=== PATIENT | male | born 1950 | race Caucasian/White ===

== ENCOUNTER 2025-07-24 05:39 | Emergency (ER) | payer BC, SELFPAY ==
[2025-07-24 05:45] VITALS: BP 148/82
[2025-07-24 08:05] VITALS: BP 146/88
[2025-07-24 08:36] VITALS: BP 146/88; BMI 28.4
[2025-07-24 08:39] LABS: Hematocrit 43.7 % (39.0-52.0); Hemoglobin 15.2 g/dL (13.0-18.0); Mean Corp Hgb Conc. 34.8 g/dL (33.0-37.0); Mean Corpuscular Volume 98.9 fL (80.0-94.0); Nucleated Red Blood Cells % 0 % (-); Platelet Count 173 10^3/uL (130-400); Red Cell Dist. Width 12.6 % (11.5-14.5)
[2025-07-24 08:53] LABS: ALT (SGPT) 21 U/L (0-50); AST (SGOT) 26 U/L (17-59); Albumin 4.3 g/dl (3.5-5.0); Alkaline Phosphatase 53 U/L (38-126); Blood Urea Nitrogen 16 mg/dl (9-20); Calcium 9.3 mg/dl (8.4-10.2); Carbon Dioxide 26 mmol/L (22-30); Chloride 107 mmol/L (98-107); Estimated Creatinine Clearance 106 ml/min; Glucose 98 mg/dl (70-99); Magnesium 2.1 mg/dl (1.6-2.3); Potassium 4.1 mmol/L (3.5-5.1); Sodium 138 mmol/L (135-145); Total Protein 7.1 g/dl (6.3-8.2); eGFR > 60.00
[2025-07-24 09:00] VITALS: BP 128/75
--- NOTE | 2025-07-24 09:13 | ED.GENMED ---
History of Present Illness
General
Chief Complaint: Headache
Source: patient
Time Seen by Provider: 07/24/25 09:08
History of Present Illness
History of Present Illness:
74-year-old male with past medical history of subarachnoid hemorrhage, hypertension, [id number] diabetes presenting to the emergency department for evaluation of 3 to 4 days of a left posterior neck/headache that is not any worse today
but not getting any better described to be a mild to moderate aching sensation, nonradiating, mildly reproducible with range of motion. Patient states that this feels different than his previous subarachnoid hemorrhage as the intensity is not as
severe as well as he does not have any nausea or vomiting with it. Patient is without any fevers, chills, rigors, rashes, visual disturbances, focal weakness or numbness, chest pain or shortness of breath. He did not have any relief when he
attempted to use Tylenol or Motrin. No other concerns at this time.
Past History
Past History
ED Past Medical History: HTN, Hypercholesterolemia, NIDDM and Other (Subarachnoid hemorrhage)
ED Past Surgical History: Orthopedic (hip replacment at [place]) and Other
Social History
Tobacco: Non-smoker
Alcohol: Occasional
Drug: None
Personal:
Living: with family
Employment: Employed
Family History
Family History: Other
Review of Systems
Review of Systems
All Other Systems: ROS reviewed and negative except as documented in HPI and ROS
Phy Exam
Physical Exam
Physical Exam:
GENERAL: Alert , in no apparent distress
HEAD: Normocephalic atraumatic
EYE: conjunctiva clear, pupils 3mm bilateral
NECK: Supple, no significant adenopathy. FROM. mild discomfort with rightward rotation
ENT: o/p clr, mmm.
CARDIAC: Regular rate and rhythm
LUNGS: Clear breath sounds bilaterally, no acute respiratory distress, no wheezes/rales/rhonchi
NEUROLOGICAL: Alert and oriented
SKIN: Warm and dry, skin intact.
MUSCULOSKELETAL: well perfused.
PSYCH: Normal and appropriate interaction.
Scores
Heart Failure Risk
Heart Failure Risk Score: Not Applicable
Heart Score for Chest Pain Patients
STEMI patient?: Not applicable
Withdrawal Assessment of Alcohol
Withdrawal Assessment Completed?: Not applicable
Course
Orders/Labs/Results
Orders:
Orders
07/24/25 07:36
CT Head W/o Iv Contrast Urgent
Comment:
Reason For Exam: headache X 4 days
07/24/25 08:26
Complete Blood Count/With Diff Urgent
Comprehensive Metabolic Panel Urgent
Magnesium Urgent
07/24/25 09:12
CT Head & Neck Angio W/wo IV Urgent
Comment:
Reason For Exam: hx subarachnoid hemorrhage, post left headache
Abnormal Lab Results
07/24/25
08:26
RBC 4.42 L 10^6/uL
(4.70-6.10)
MCV 98.9 H fL
(80.0-94.0)
MCH 34.4 H pg
(27.0-31.0)
Abs Immat Gran (auto) 0.1 H 10^3/uL
(0-0.05)
Absolute Monos (auto) 0.7 H 10^3/uL
(0.1-0.6)
Immature Gran % 0.8 H %
(0-0.5)
Monocytes % 10.6 H %
(1.7-9.3)
Creatinine 0.6 L mg/dL
(0.7-1.3)
Total Bilirubin 1.4 H mg/dl
(0.2-1.3)
07/24/25 08:26
07/24/25 08:26
Vital Signs
Initial and Last Documented VS:
Initial Vital Signs
Temp Pulse Resp BP Pulse Ox
98.0 F 74 20 148/82 96
07/24/25 05:45 07/24/25 05:45 07/24/25 05:45 07/24/25 05:45 07/24/25 05:45
Last Documented Vital Signs
Temp Pulse Resp BP Pulse Ox
97.6 F 65 19 122/71 95
07/24/25 08:36 07/24/25 10:15 07/24/25 10:15 07/24/25 10:00 07/24/25 10:15
MDM/Problems Addressed
Differential Diagnosis Includes:
SAH
Vertebral artery dissection
Muscular strain
Less concern for infection
MDM/Problems Addressed:
74-year-old male presenting to the ER for evaluation of 3 to 4 days of left posterior head/neck pain, unchanged today but not getting any better and no relief with Motrin or Tylenol. Patient has a history of a subarachnoid hemorrhage from
approximately 10 years ago. Not on any anticoagulant medications. Arrives to the ER hemodynamically stable. Labs and a head CT had been ordered with no acute pathologies found. Given patient's history of the subarachnoid hemorrhage I am adding
on CTA of the head and neck to further evaluate. Patient declining anything for symptoms.
Chronic conditions affecting care: Neurological disorder
*Radiology
Radiology exam reviewed: radiology read reviewed
*Pulse Oximetry
SaO2: 98
Oxygen Mode of Delivery: Room air
Patient hypoxic: no
*Critical Care Note
Total Time (30-74mins, 75-104mins- exclusive of procedures): Not Applicable
Patient Management
Escalation/DeEscalation of care consider admission/obs:
CTA of the head and neck are negative for any acute pathologies. Patient has follow-up visit scheduled with his primary care provider this coming Friday. Aware of return precautions to the ER. Otherwise stable for discharge home. He may use
NSAIDs/Tylenol as needed for headache/neck pain
ED Attending Note
-
Portions of this chart may have been created with voice recognition software.� Occasional wrong word or��sound alike� substitutions may have occurred due to the inherent limitations of voice recognition software.
Discharge Plan
Departure
Patient Disposition: Home (Routine Discharge)
Date of Disposition: 07/24/25
Time of Disposition: 11:23
Patient with high blood pressure during this ER visit?: Yes
Discharge Problem:
Cervicalgia
Instructions: Neck pain - ED (DC)
Prescriptions:
No Action
fluticasone propion-salmeterol 1 DISK blister with device
1 puff inhalation DAILY
carvedilol 6.25 MG tablet
6.25 mg PO BID
atorvastatin 10 MG tablet
20 mg PO HS
aspirin 81 MG tablet,delayed release (DR/EC)
81 mg PO DAILY
hydrochlorothiazide 12.5 MG capsule
12.5 mg PO DAILY
Referrals:
Osiel Cannon MD [Family Provider, Internal Medicine]
Interventions
Interventions:
*Risk Screen - Suicide Last Done: 07/24/25 05:45
*General Assessment Last Done: 07/24/25 05:45
*Neglect/Abuse Screening Last Done: 07/24/25 05:45
*ED- Fall Risk Assessment Last Done: 07/24/25 05:45
*ED COVID-19 Vaccine History Last Done: 07/24/25 05:45
*ED Influenza Vaccine History Last Done: 07/24/25 05:45
*Nursing Disposition Last Done: 07/24/25 11:50
ED- Neurological Assessment Last Done: 07/24/25 08:36
Discharge Date and Time
Discharge Date/Time: 07/24/25 11:50
Print Language: ICELANDIC
[2025-07-24 10:00] VITALS: BP 122/71
== END 2025-07-24 11:50 | disposition home or self-care (01) ==
LOC: EMR 05:39
PROVIDERS: EMERGENCY PHYSICIAN Student in an Organized Health Care Education/Training Program; FAMILY PHYSICIAN Internal Medicine
DX: M54.2 Cervicalgia (principal); R51.9 Headache, unspecified; I10 Essential (primary) hypertension; E78.00 Pure hypercholesterolemia, unspecified; E11.9 Type 2 diabetes mellitus without complications; Z86.79 Personal history of other diseases of the circulatory system
CPT/HCPCS: 99284; 70450; 70496; 70498; 80053; 83735; 85025; Q9967

== ENCOUNTER → 2025-08-01 12:10 | Outpatient (REF) | payer BC, SELFPAY ==
[2025-08-01 13:12] LABS: Hematocrit 44.3 % (39.0-52.0); Hemoglobin 15.4 g/dL (13.0-18.0); Mean Corp Hgb Conc. 34.8 g/dL (33.0-37.0); Mean Corpuscular Volume 101.6 fL (80.0-94.0); Nucleated Red Blood Cells % 0 % (-); Platelet Count 215 10^3/uL (130-400); Red Cell Dist. Width 12.6 % (11.5-14.5)
[2025-08-01 13:31] LABS: Urine Character Clear (Clear)
[2025-08-01 13:36] LABS: ALT (SGPT) 21 U/L (0-50); AST (SGOT) 22 U/L (17-59); Albumin 4.4 g/dl (3.5-5.0); Alkaline Phosphatase 52 U/L (38-126); Blood Urea Nitrogen 19 mg/dl (9-20); Calcium 9.3 mg/dl (8.4-10.2); Carbon Dioxide 25 mmol/L (22-30); Chloride 105 mmol/L (98-107); Glucose 96 mg/dl (70-99); HDL Cholesterol 60 mg/dl; LDL Cholesterol, Calculated 61 mg/dl; Magnesium 2.1 mg/dl (1.6-2.3); Potassium 4.3 mmol/L (3.5-5.1); Sodium 136 mmol/L (135-145); Total Protein 7.4 g/dl (6.3-8.2); Very Low Density Lipoprotein 25 mg/dl (0-30); eGFR > 60.00
[2025-08-01 13:55] LABS: Glycohemoglobin (HgbA1c) 5.0 % (4.0-5.6)
[2025-08-01 13:56] LABS: Vitamin D, 25-OH*** 34.9 ng/mL (30-80)
[2025-08-01 14:04] LABS: Urine White Cell 0-2 /HPF (0-5)
[2025-08-01 14:09] LABS: PSA, Total - Screen 0.34 ng/ml (0.0-4.0); TSH 1.78 uIU/ml (0.47-4.68)
[2025-08-01 14:45] LABS: Folate 9.7 ng/ml (2.76-20); Vitamin B12 301 pg/ml (239-931)
== END ==
LOC: REG 12:10
PROVIDERS: ATTENDING PHYSICIAN Internal Medicine
DX: Z13.228 Encounter for screening for other metabolic disorders (principal); Z13.21 Encounter for screening for nutritional disorder; Z13.1 Encounter for screening for diabetes mellitus; Z13.29 Encounter for screening for other suspected endocrine disorder; Z13.89 Encounter for screening for other disorder; Z13.0 Encounter for screening for diseases of the blood and blood-forming organs and certain disorders involving the immune mechanism; Z12.5 Encounter for screening for malignant neoplasm of prostate
CPT/HCPCS: 36415; 80053; 80061; 81003; 81015; 82306; 82570; 82607; 82746; 83036; 83735; 84156; 84443; 85025; G0103

== ENCOUNTER → 2025-08-29 06:34 | Outpatient (REF) | payer BC, SELFPAY ==
[2025-08-29 09:53] LABS: Urine Protein Dipstick Negative (Neg- 1+)
[2025-08-29 13:04] LABS: Microalb - Urine Creatinine 93.000 mg/dl
[2025-08-29 13:08] LABS: Microalbumin, Random Urine 2.7 mg/dl (0.6-1.7)
== END ==
LOC: MRI 06:34
PROVIDERS: ATTENDING PHYSICIAN Internal Medicine
DX: M48.02 Spinal stenosis, cervical region (principal); Z13.89 Encounter for screening for other disorder
CPT/HCPCS: 72141; 81003; 82043; 82570